=== PATIENT | female | born 1990 | race African-American/Black ===

== ENCOUNTER 2017-08-04 13:57 | Emergency (ER) | payer MEDICARE, MEDICAID ==
[2017-08-04 15:05] LABS: #Basophils 0.1 thou/uL (0.0-0.2); #Eosinphils 0.2 thou/uL (0.0-0.7); #Lymphocytes 2.4 thou/uL (1.20-3.40); #Neutrophils 4.9 thou/uL (1.40-6.50); %Eosinophils 2.9 % (0.0-10.0); %Lymphocytes 27.5 % (21.0-51.0); %Monocytes 11.6 % (0.0-10.0); Hematocrit 40.6 % (36.0-47.0); Mean Platelet Volume 6.5 fL (7.4-10.4); Red Blood Cell (RBC) Count 4.15 mill/uL (4.20-5.40); White Blood Cell (WBC) Count 8.5 thou/uL (4.8-10.8)
[2017-08-04 15:26] LABS: Bilirubin Negative (Negative); Blood, Urine Negative (Negative); Glucose, Urine (Dipstick) Negative (Negative); Ketone, Urine Negative (Negative); Nitrite Negative (Negative); Protein, Urine (Dipstick) Negative (Neg-Trace)
[2017-08-04 15:27] LABS: ALT (SGPT) 11 U/L (8-55); AST (SGOT) 13 U/L (5-34); Alkaline Phosphatase 51 U/L (40-150); Anion Gap 12 mmol/L (10-20); BUN (Urea Nitrogen) 10 mg/dL (7.0-18.7); Bilirubin, Total 0.5 mg/dL (0.2-1.2); Calc. Creatinine Clearance 0 mL/min (70-130); Calcium 9.7 mg/dL (7.8-10.44); Carbon Dioxide 25 mmol/L (22-29); Chloride 103 mmol/L (98-107); Estimated GFR-MDRD Greater than 90; Globulin 3.3 g/dL (2.4-3.5); Protein, Total 7.2 g/dL (6.0-8.3)
[2017-08-04 15:27] LABS: Bacteria/HPF None Seen HPF (None Seen); Hyaline Casts/LPF 0-3 HYALINE CAST LPF (0-3 Hyaline); RBC/HPF 0-3 HPF (0-3); Squamous Epithelial 0-3 HPF (0-3); WBC/HPF 0-3 HPF (0-3)
--- NOTE | 2017-08-04 15:53 | ULT ---
PELVIC SONOGRAM TRANSABDOMINAL AND TRANSVAGINAL IMAGING WITH DUPLEX EVALUATION: HISTORY: Pelvic pain. FINDINGS: Urinary bladder is decompressed. The uterus is enlarged with a heterogeneous echotexture at 10.3 cm in length. Cystic structure within the endometrial cavity contains ill-defined echogenicities, not a well-defined yolk sac or pole. The sac measurements correlate with 6 weeks 6 days gestatio nal size. No heart motion is apparent. The right ovary is 3.4 cm in length and the left 2.6 cm. Each has a normal sonographic appearance a nd demonstrates good color and spectral Doppler flow. IMPRESSION: Small complex cystic structure within the endometrial cavity measures 6 weeks 6 days gestational siz e. Normal products of conception are not visible. This may represent a spontaneous miscarriage. C lose continued clinical and sonographic followup is suggested. POS: PRITI
== END 2017-08-04 17:04 | disposition home or self-care (01) ==
LOC: ERS 13:57
DX: O98.811 Other maternal infectious and parasitic diseases complicating pregnancy, first trimester (principal); H00.016 Hordeolum externum left eye, unspecified eyelid; Z3A.01 Less than 8 weeks gestation of pregnancy; O99.341 Other mental disorders complicating pregnancy, first trimester; F41.9 Anxiety disorder, unspecified; F32.9 Major depressive disorder, single episode, unspecified; O99.331 Smoking (tobacco) complicating pregnancy, first trimester; F17.210 Nicotine dependence, cigarettes, uncomplicated
CPT/HCPCS: 36415; 76856; 80053; 81003; 81015; 84702; 85025; 86900; 86901; 87480; 87491; 87510; 87591; 87660

== ENCOUNTER 2017-11-12 13:42 | Emergency (ER) | payer MEDICARE, MEDICAID ==
[2017-11-12 14:24] LABS: Bilirubin Negative (Negative); Blood, Urine Negative (Negative); Clarity CLEAR (Clear); Glucose, Urine (Dipstick) Negative (Negative); Leukocyte Trace (Negative); Nitrite Negative (Negative); Protein, Urine (Dipstick) Negative (Neg-Trace); Specific Gravity, Urine 1.029 (1.002-1.036); pH, Urine 6.5 (5.0-9.0)
[2017-11-12 14:26] LABS: Bacteria/HPF None Seen HPF (None Seen); Hyaline Casts/LPF 0-3 HYALINE CAST LPF (0-3 Hyaline); RBC/HPF 0-3 HPF (0-3); Squamous Epithelial 0-3 HPF (0-3); WBC/HPF 0-3 HPF (0-3)
== END 2017-11-12 16:35 | disposition home or self-care (01) ==
LOC: ERS 13:42
DX: O99.89 Other specified diseases and conditions complicating pregnancy, childbirth and the puerperium (principal); R10.32 Left lower quadrant pain; O99.341 Other mental disorders complicating pregnancy, first trimester; F41.9 Anxiety disorder, unspecified; F32.9 Major depressive disorder, single episode, unspecified; O99.331 Smoking (tobacco) complicating pregnancy, first trimester; F17.210 Nicotine dependence, cigarettes, uncomplicated; Z3A.08 8 weeks gestation of pregnancy
CPT/HCPCS: 81003; 81015; 99284

== ENCOUNTER 2018-03-12 17:35 | Day surgery (SDC) | payer MEDICARE, OTHER ==
[2018-03-12 18:14] VITALS: BMI 48.1
--- NOTE | 2018-03-12 19:05 | PDOC.LDHP ---
Labor and Delivery H&P Chief complaint: other (sent from US for concern of IUGR and anhydramnios) HPI: 27 yo @ 23.5 by [facility] US presents after being seen in US clinic and having findings concerning for IUGR and anydramnios. Pt reports good movement, denies vaginal discharge, lof, cramping, abdominal pain, dysuria, nvdc , fever, chills, sweats. On todays US hr was detected as well as movement. Current gestational age (weeks): 23 (+5) Due date: 07/04/18 Dating criteria: last menstrual period, first trimester ultrasound Grav: 5 Para: 3 ([id number]) Current complications: IUGR, oligohydramnios, breech, other ( marijuana use) Abnormal US findings: Yes (oligohydramnios, IUGR) Current medications: pre- vitamins Previous surgical history: none Social history: tobacco use, drug use (marijuana, currently denies) - Physical Exam Vital signs reviewed and normal: yes General: NAD, resting Heart: RRR Lungs: nonlabored breathing Abdomen: NTTP Extremeties: no edema FHT: late decelerations (frequent recurrent decelerations into the 100s with baseline around 150. No contractions.) [place] contractions every: None - OB Labs Blood type: O RH: positive Antibody Screen: negative HIV: negative RPR: negative HEPSAg: negative 1 hour GCT: unknown GBS: unknown Urine drug screen: positive (cannabinoids) Rubella: immune - Assessment 1) Oligohydramnios: Discovered on f/u US will admit for OBs on l&d Full US with doppler LR 1L bolus CBC, CMP, UA, UDS, amnisure, vp3, GBS, gc/c pcr -celestone 12mg X2 @ 24 hours apart 2) IUGR: concern for on outside US, repeat US on l&d showed IUGR with EFW of 343 grams and EGA of 20.4 and single fluid pocket of 1.5cm pt will likely need transfer to higher care facility given US findings <Ulices Gomez - Last Filed: 03/12/18 20:37> - Physical Exam FHT: late decelerations <Akanksha Reese - Last Filed: 03/12/18 22:08> Allergies/Adverse Reactions: Allergies Allergy/AdvReac Type Severity Reaction Status Date / Time No Known Allergies Allergy Verified 03/12/18 18:09 Attending Addendum - Attending Addendum Date/Time: 03/12/181 I personally evaluated the patient and discussed the management with Dr. Gomez I agree with the History, Examination, Assessment and Plan documented above with any addition or exceptions noted below- Briefly briseyda is a 28 yo @ 23 5/7 weeks dated by 7 week USG and consistent with 9 week and 17 week USG seen in clinic today for follow-up USG which showed no fluid and EFW<1%. Patient denies any LOF, VB, ctx, abdominal pain. (+) FM. PMH/PSH/Meds/ALL/SH reviewed and agree with resident's documentation. Afebrile BP 135/65 P76 97% Pt examined by me. Abd-soft/nt FHTs baseline 150s/ occasional variable decelerations. Labs Amnisure negative. WBC 12.5 Hgb 12.9 Hct 38.3 Plt 249; CMP normal; U/A negative; UDS negative; GC/CT pending. Vaginitis screen negative. USG MARIO 20 2/7 weeks; EFW 353 grams; TARA 1.5 cm; breech; anterior placenta. A/P: IUP @ 23 5/7 weeks with oligohydramnios and IUGR- Case discussed with neonatology here and recommended transfer of patient if stable. Variable decelerations improved with fluid bolus. Betamethasone 12 mg x 1 given. Transfer center contacted and spoke with Dr. Weaver at [facility]. Case discussed and patient accepted for transfer. Continue IVF. <Akanksha Reese - Last Filed: 03/12/18 22:08>
[2018-03-12] MEDS ORDERED: Lactated Ringer's 1,000 ML IV SCH ×2 (19:15)
[2018-03-12 19:25] LABS: #Eosinphils 0.7 thou/uL (0.0-0.7); #Lymphocytes 2.7 thou/uL (1.20-3.40); #Monocytes 1.1 thou/uL (0.11-0.59); %Basophils 0.4 % (0.0-1.0); %Eosinophils 5.3 % (0.0-10.0); %Lymphocytes 21.4 % (21.0-51.0); %Monocytes 8.8 % (0.0-10.0); %Neutrophils 64.1 % (42.0-75.0); Hemoglobin 12.9 g/dL (12.0-16.0); Mean Corpuscular HGB CONC 33.6 g/dL (32.0-36.0); Mean Corpuscular Hemoglobin 32.3 pg (27.0-31.0); Mean Corpuscular Volume 96.3 fl (81.0-99.0); Mean Platelet Volume 7.1 fL (7.4-10.4); Platelet Count 249 thou/uL (130-400); RBC Distribution Width 13.1 % (11.5-14.5); Red Blood Cell (RBC) Count 3.98 mill/uL (4.20-5.40); White Blood Cell (WBC) Count 12.5 thou/uL (4.8-10.8)
[2018-03-12 19:37] LABS: Albumin 3.4 g/dL (3.5-5.0); Chloride 108 mmol/L (98-107); Potassium 4.3 mmol/L (3.5-5.1); Sodium 138 mmol/L (136-145)
[2018-03-12 19:38] LABS: Calcium 9.1 mg/dL (7.8-10.44); Glucose 87 mg/dL (70-105)
[2018-03-12 19:39] LABS: Globulin 2.9 g/dL (2.4-3.5); Protein, Total 6.3 g/dL (6.0-8.3)
[2018-03-12 19:40] LABS: Anion Gap 9 mmol/L (10-20); Bilirubin, Total 0.2 mg/dL (0.2-1.2); Carbon Dioxide 25 mmol/L (22-29)
[2018-03-12 19:42] LABS: BUN (Urea Nitrogen) 13 mg/dL (7.0-18.7); Calc. Creatinine Clearance 252 mL/min (70-130); Estimated GFR-MDRD Greater than 90
[2018-03-12 19:43] LABS: AST (SGOT) 10 U/L (5-34)
[2018-03-12 19:44] LABS: ALT (SGPT) 9 U/L (8-55)
[2018-03-12 19:49] LABS: Alkaline Phosphatase 91 U/L (40-150)
[2018-03-12 20:06] LABS: Bilirubin Negative (Negative); Blood, Urine Trace (Negative); Clarity CLEAR (Clear); Glucose, Urine (Dipstick) Negative (Negative); Leukocyte Negative (Negative); Nitrite Negative (Negative); Protein, Urine (Dipstick) Negative (Neg-Trace); Specific Gravity, Urine 1.033 (1.002-1.036); Urobilinogen 0.2 mg/dL (0.2-1.0)
[2018-03-12] MEDS ORDERED: Betamet Acet/Betamet Na Ph 30 MG/5 ML VIAL IM SCH (20:15)
[2018-03-12 20:16] LABS: Amphetamine Not Detected (NotDetected); Barbiturates Screen Not Detected (NotDetected); Benzodiazepine Screen Not Detected (NotDetected); Cocaine Metabolite Screen Not Detected (NotDetected); Medtox Control Line Valid? VALID (VALID); Medtox Reader # READER 4; Methadone Not Detected (NotDetected); Methamphetamine Not Detected (NotDetected); Opiate Screen Not Detected (NotDetected); Oxycodone Screen Not Detected (NotDetected); Phencyclidine (PCP) Not Detected (NotDetected); THC/Cannabinoid Screen Not Detected (NotDetected); Tricyclic Screen Not Detected (NotDetected)
[2018-03-12 20:25] LABS: Amnisure Internal Control QC ACCEPTABLE (ACCEPTABLE); Amnisure Test No Membranes Rupture (No Rupture)
--- NOTE | 2018-03-12 20:50 | ULT ---
ULTRASOUND OB COMPLETE STANDARD 03/12/18 HISTORY: Low fluid. Intrauterine growth retardation. COMPARISON: None. FINDINGS: Real time garcia scale, color doppler with spectral analysis of the gravid uterus was performed per tra nsabdominal approach. Single viable intrauterine with average ultrasound age 20 weeks, 2 da ys. Estimated date of delivery 07/28/18. The clinical age is 24 weeks, 2 days. Estimated weight is 12 oz. Biparietal diameter 19 week, 4 day, 4.51 cm. Head circumference 20 week, 5 day, 18.29 cm. Abdominal circumference 20 week, 2 day, 15.03 cm. Femur length 20 week, 2 day, 3.28 cm. The amniotic fluid index is markedly abnormally low at 1.5 cm. The kidneys and urinary bladder unable to be visualized. Cervix is poorly visualized although measures approximately 3 cm. According to the technologist appears to be closed. Cerebellum, lateral ventricles, four chamber heart are unremarkable. The position is breech and the placenta is anterior. IMPRESSION: 1. Abnormally low amniotic fluid index of 1.5 cm. 2. Nonvisualization of the kidneys and urinary bladder. 3. Discordant average ultrasound age and the patient's gestational age suggesting intrauterine g rowth retardation. 4. Close followup recommended to evaluate the kidneys and urinary bladder. CODE: T POS: PRITI
[2018-03-14 23:06] LABS: Chlamydia by PCR Not Detected (NotDetected); GC by PCR Not Detected (NotDetected)
== END 2018-03-12 23:28 | disposition short-term general hospital (02) ==
LOC: L&D/OP 17:35
PROVIDERS: ATTEND Family Medicine
PROC: BY4CZZZ Ultrasonography of Second Trimester, Single Fetus (ICD-10-PCS; principal; 2018-03-12)
DX: O36.5920 Maternal care for other known or suspected poor fetal growth, second trimester, not applicable or unspecified (principal); O41.02X0 Oligohydramnios, second trimester, not applicable or unspecified; O99.332 Smoking (tobacco) complicating pregnancy, second trimester; Z3A.23 23 weeks gestation of pregnancy
CPT/HCPCS: 36415; 51701; 76805; 80053; 80306; 81003; 84112; 85025; 87480; 87491; 87510; 87591; 87660; 96360; 96361; 96372; 99285; J0702